=== PATIENT | male | born 1975 | race Caucasian/White ===

== ENCOUNTER 2021-07-16 21:35 | Emergency (ER) | payer MEDICAID ==
[~2021-07-16] VITALS: Ht 170.2 cm; Wt 108.9 kg
[2021-07-16 21:38] VITALS: BP 142/87
--- NOTE | 2021-07-16 21:47 | NUR ---
PT AMBULATED TO BED 5
--- NOTE | 2021-07-16 21:52 | NUR ---
ASSUMED CARE OF PATIENT AT THIS TIME. 45/M CC EPIGASTRIC PAIN S/P LIFTING TRANSMISSION YESTERDAY. STATES HE FELT A POP AND TODAY NOTICED SOME BLOOD IN HIS STOOL. STATES BLOOD LOOKED BRIGHT RED. DENIES CURRENT NAUSEA AND VOMITING BUT STATES SOME THIS MORNING. NO SOB OR CHEST PAIN. HX: CHOLESTEROL, CHOLECYSTECOMY AND ABOMINAL HERNIA REPAIR. NKA
[2021-07-16 23:35] LABS: BASOPHILS % (AUTO) 0.2 % (0.0-2.0); EOSINOPHILS # (AUTO) 0.2 K/uL (0-0.4); EOSINOPHILS % (AUTO) 2.1 % (0.0-4.0); HEMATOCRIT 42.5 % (36-52); HEMOGLOBIN 14.3 g/dL (12.0-18.0); LYMPHOCYTES # (AUTO) 3.3 K/uL (2.0-11.5); LYMPHOCYTES % (AUTO) 31.6 % (20.5-51.1); MEAN CORPUSCULAR HEMOGLOBIN 29 pg (27-31); MEAN CORPUSCULAR HGB CONC 34 g/dL (33-37); MEAN CORPUSCULAR VOLUME 87.2 fL (80-94); MONOCYTES # (AUTO) 0.8 K/uL (0.8-1.0); MONOCYTES % (AUTO) 7.8 % (1.7-9.3); NEUTROPHILS % (AUTO) 58.3 % (42.2-75.2); PLATELET COUNT (AUTO) 230 K/uL (140-450); RED BLOOD CELL COUNT(AUTO) 4.88 MIL/uL (4.20-6.10); RED CELL DISTRIBUTION WIDTH 14.3 % (11.6-13.7); WHITE BLOOD COUNT (AUTO) 10.4 K/uL (4.8-10.8)
[2021-07-16 23:49] LABS: ALBUMIN 3.8 g/dL (3.4-5.0); ANION GAP 11.4 (8-16); CARBON DIOXIDE 27.1 mmol/L (21-32); POTASSIUM 3.5 mmol/L (3.5-5.1); TOTAL BILIRUBIN 0.5 mg/dL (0.0-1.0)
[2021-07-16] MEDS ORDERED: MORPHINE SULFATE 4 MG/ML SYR IVP ONE (23:55)
[2021-07-16] MEDS ORDERED: FAMOTIDINE 20 MG/2 ML VIAL IVP ONE (23:55)
[2021-07-16] MEDS ORDERED: ONDANSETRON 4 MG/2 ML VIAL IVP ONE (23:55)
[2021-07-17] MEDS ORDERED: FAMO-92 PO (02:36)
--- NOTE | 2021-07-17 02:44 | NUR ---
CLEARED FOR DISCHARGE AT THIS TIME. NO FURTHER QUESTIONS OR CONCERNS FOLLOWING DISCHARGE TEACHING. ADVISED TO FOLLOW UP WITH PCP AND RETURN SHOULD CONDITION WORSEN
[2021-07-17 02:45] VITALS: BP 141/81
== END 2021-07-17 02:44 | disposition home or self-care (01) ==
LOC: MED 21:35
DX: K29.70 Gastritis, unspecified, without bleeding (principal); K60.2 Anal fissure, unspecified; Z90.49 Acquired absence of other specified parts of digestive tract; Z98.890 Other specified postprocedural states
CPT/HCPCS: 36415; 74176; 80053; 85025; 96374; 96375; 99284; J2270; J2405; J3490